=== PATIENT | female | born 1955 | race American Indian/Alaskan Native ===

== ENCOUNTER 2017-03-18 06:27 | Observation (INO) | payer MEDICARE, BC ==
[2017-03-16 11:19] VITALS: BMI 23.6
[2017-03-18] MEDS ORDERED: Lidocaine 2% Inj (20ml) ONE (06:51)
[2017-03-18] MEDS ORDERED: Iodixanol 320 MG/ML 200 ML BOTTLE IV ONE (06:52)
[2017-03-18] MEDS ORDERED: Iodixanol 320 MG/ML 100 ML BOTTLE IV ONE (06:52)
[2017-03-18] MEDS ORDERED: Iodixanol 320 mg/ml 150 ml Bottle IV ONE ×2 (06:52→15:40)
[2017-03-18 07:15] LABS: BASO # 0.03 K/mm3 (0.0-2.0); BASO % 0.4 % (0.0-3.0); EOS # 0.1 (0.0-0.7); EOS % 1.3 % (1.5-5.0); GRAN # 3.75 (1.4-6.5); HEMATOCRIT 30.7 % (36.0-48.0); LYMPH # 3.9 (1.2-3.4); LYMPH % 45.4 % (22.0-35.0); MEAN CELL VOLUME 86.7 fl (80.0-105.0); MEAN CORPUSCULAR HEMOGLOBIN 29.7 pg (25.0-35.0); MEAN CORPUSCULAR HGB CONC 34.2 g/dl (31.0-37.0); MEAN PLATELET VOLUME 9.4 fl (7.0-11.0); MONO # 0.8 (0.1-0.6); MONO % 8.9 % (1.0-6.0); RED CELL DISTRIBUTION WIDTH 14.9 % (11.5-14.5); WHITE BLOOD COUNT 8.5 10^3/ul (4.5-11.0)
[2017-03-18 07:25] LABS: INR 0.93 (0.93-1.08); PARTIAL THROMBOPLASTIN TIME 29.6 Seconds (25.1-36.5)
[2017-03-18 07:28] LABS: CALCIUM 10.1 mg/dL (8.4-10.5); POTASSIUM 3.4 mmol/L (3.6-5.0)
[2017-03-18] MEDS ORDERED: Propofol 10 mg/ml Inj (20 ML) ONE (07:41)
[2017-03-18] MEDS ORDERED: Midazolam 2 MG/2 ML VIAL ONE (07:42)
[2017-03-18] MEDS ORDERED: DiphenhydrAMINE 50 mg/ml Inj ONE (07:46)
[2017-03-18] MEDS ORDERED: Famotidine 20mg/50ml 20 MG/50 ML BAG IVPB ONE (07:46)
[2017-03-18] MEDS ORDERED: Sodium Chloride 0.9% 1,000 ML IV SCH ×2 (08:15→10:45)
[2017-03-18] MEDS: Insulin Lispro (humaLOG) MEDIUM Coverage SC SCH ×3 (11:30→22:16)
[2017-03-18] MEDS ORDERED: DiphenhydrAMINE 50 mg/ml Inj IVP ONE (11:41)
[2017-03-18] MEDS ORDERED: Influenza Vaccine 60 mcg/0.5 mL SYR (4YR UP) IM ONE (12:37)
[2017-03-18] MEDS ORDERED: Pneumococcal 23-Valent Vaccine IM ONE (12:37)
[2017-03-18] MEDS ORDERED: Heparin25000 units/250ml 1/2NS 25,000 UNITS/250 ML BAG IV SCH (12:45)
--- NOTE | 2017-03-18 13:58 | CP.PCM.HP ---
<Yaw Guardado - Last Filed: 03/18/17 13:38> History of Present Illness - History of Present Illness History of Present Illness: CC: LE pain when walking HPI: Pt is a 62 yo female with PMH of DM, HTN, HLD, b/l PAD s/p multiple stents presents s/p catherization for b/l LE PAD. According to the patient, she had increased difficulty walking 1-2 blocks due to B/l LE pain L>R since November 2016. Patient states that she has pain with walking before November, but it has become worse and more sharp now. Patient states that pain is mainly in her thighs. Patient states that OTC pain medications do not resolve her symptoms and that rest mildly helps. LE pain interferes with her sleep. Per Dr. Sultana, catherization showed occlusion in the b/l LE, however no intervention was taken at that time. Dr. Sultana requested that patient be admitted to undergo further testing as patient has history of multiple failed stents for PAD and to investigate further interventions including possible bypass. Pt denied CP, SOB, nausea, vomiting, diarrhea, constipation, abdominal pain, fever, chills, CELESTE, dysuria, or dizziness. PMD: Naricetti? PMH: DM, HTN, HLD, B/L PAD s/p stenting, anxiety/depression Surg: Pancreatic cyst removal, GI bleed with intervention?, ovarian cyst removal FHx: Colon CA All: Codeine, oxycodon, iodine SH: 10 cig/day tobacco use, denied EtOH or illicit drug use Medications: reviewed as per MAR Present on Admission - Present on Admission Any Indicators Present on Admission: No Review of Systems - Review of Systems Review of Systems: 12 point ROS reviewed and is negative other than what is stated in HPI. Past Patient History - Past Medical History & Family History Past Medical History?: Yes - Past Social History Smoking Status: Light Smoker < 10 Cigarettes Daily - CARDIAC Hx Cardiac Disorders: Yes (angioplasty x5) Hx Hypercholesterolemia: Yes Hx Hypertension: Yes Hx Peripheral Vascular Disease: Yes Other/Comment: b/l leg stents 5 total, most recent angiogram today 03/18/17 due to left leg pain especially at night - PULMONARY Hx Respiratory Disorders: No - NEUROLOGICAL Hx Neurological Disorder: No - HEENT Hx HEENT Problems: Yes (reading glasses) - RENAL Hx Chronic Kidney Disease: No - ENDOCRINE/METABOLIC Hx Diabetes Mellitus Type 2: Yes - HEMATOLOGICAL/ONCOLOGICAL Hx Anemia: Yes (blood transfusion 2015) - INTEGUMENTARY Hx Dermatological Problems: No Other/Comment: r groin dressing dry and intact from angiogram today 03/18/17 - MUSCULOSKELETAL/RHEUMATOLOGICAL Hx Falls: No - GASTROINTESTINAL Hx Gastrointestinal Disorders: Yes (gastritis,h pylori) Hx Diverticulitis: Yes Hx Pancreatitis: (pancreatic cyst) HX Swallowing Problems: Yes (When swallowing it hurt.) Hx Ulcer: Yes Other/Comment: icu x5 days 2016 due to gi bleed - GENITOURINARY/GYNECOLOGICAL Hx Genitourinary Disorders: Yes (ectopic ) Other/Comment: Yeast Infection - PSYCHIATRIC Hx Anxiety: Yes Hx Emotional Abuse: No Hx Physical Abuse: No - SURGICAL HISTORY Hx Surgeries: Yes Hx Orthopedic Surgery: Yes (left shoulder rotator cuff 2012) Other/Comment: d&c, exc pancreatic cyst, angiogram due to left leg pain . right fallopian tube and right ovary removed, b/l foot sx pt can't remember what werner of sx she had, r femoral artery occluded stent - ANESTHESIA Hx Anesthesia Reactions: No Hx Malignant Hyperthermia: No Meds Allergies/Adverse Reactions: Allergies Allergy/AdvReac Type Severity Reaction Status Date / Time codeine AdvReac Severe NAUSEA Verified 03/16/17 11:21 iodine AdvReac Severe NAUSEA Verified 03/16/17 11:21 oxycodone [From Percocet] AdvReac Severe NAUSEA Verified 03/16/17 11:21 Physical Exam - Constitutional Appears: No Acute Distress - Head Exam Head Exam: ATRAUMATIC, NORMAL INSPECTION, NORMOCEPHALIC - Eye Exam Eye Exam: EOMI, Normal appearance, PERRL - ENT Exam ENT Exam: Mucous Membranes Moist - Neck Exam Neck exam: Positive for: Full Rom. Negative for: Lymphadenopathy, Tenderness, Thyromegaly - Respiratory Exam Respiratory Exam: Clear to Auscultation Bilateral. absent: Rales, Rhonchi, Wheezes - Cardiovascular Exam Cardiovascular Exam: RRR, +S1, +S2. absent: Diastolic murmur, Gallop, Rubs, Systolic Murmur - GI/Abdominal Exam GI & Abdominal Exam: Soft. absent: Distended, Guarding, Rebound, Tenderness - Extremities Exam Additional comments: catherization site in right groin c/d/i without signs of hematoma - Back Exam Back exam: NORMAL INSPECTION - Neurological Exam Neurological exam: Alert, Oriented x3 - Psychiatric Exam Psychiatric exam: Normal Affect, Normal Mood - Skin Skin Exam: Dry, Intact, Normal Color, Warm Results - Vital Signs Recent Vital Signs: Last Vital Signs Temp 97.6 F 03/18/17 12:27 Pulse 80 03/18/17 12:27 Resp 16 03/18/17 12:27 BP 150/80 03/18/17 12:27 Pulse Ox 99 03/18/17 06:50 - Labs Result Diagrams: 03/18/17 07:00 03/18/17 07:00 Labs: Laboratory Results - last 24 hr 03/18/17 03/18/17 03/18/17 07:00 07:00 07:00 WBC 8.5 D RBC 3.54 Hgb 10.5 L Hct 30.7 L MCV 86.7 MCH 29.7 MCHC 34.2 RDW 14.9 H Plt Count 307 MPV 9.4 Gran % 44.0 L Lymph % (Auto) 45.4 H [place] % (Auto) 8.9 H Eos % (Auto) 1.3 L Baso % (Auto) 0.4 Gran # 3.75 Lymph # 3.9 H [place] # 0.8 H Eos # 0.1 Baso # 0.03 PT 10.2 INR 0.93 APTT 29.6 Sodium 142 Potassium 3.4 L Chloride 105 Carbon Dioxide 29 Anion Gap 12 BUN 25 H Creatinine 1.4 H Est GFR ( Amer) 46 Est GFR (Non-Af Amer) 38 Random Glucose 131 H Calcium 10.1 Triglycerides 81 Cholesterol 137 LDL Cholesterol Direct 58 HDL Cholesterol 45 Blood Type Antibody Screen BBK History Checked 03/18/17 07:00 WBC RBC Hgb Hct MCV MCH MCHC RDW Plt Count MPV Gran % Lymph % (Auto) [place] % (Auto) Eos % (Auto) Baso % (Auto) Gran # Lymph # [place] # Eos # Baso # PT INR APTT Sodium Potassium Chloride Carbon Dioxide Anion Gap BUN Creatinine Est GFR ( Amer) Est GFR (Non-Af Amer) Random Glucose Calcium Triglycerides Cholesterol LDL Cholesterol Direct HDL Cholesterol Blood Type O POSITIVE Antibody Screen Negative BBK History Checked Patient has bt Assessment & Plan - Assessment and Plan (Free Text) Assessment: 62 yo female with PMH of DM, HLD, HTN, PAD presents s/p catherization of b/l LE for PAD admitted for further evaluation and treatment for PAD. Plan: 1. PAD - Cardiology consulted S/p catherization - Vascular surgery consulted - CTA ileofemoral with b/l runoff ordered Benadryl, solumedrol, pepcid given prior to CTA due to h/o contrast dye allergy - F/u Echo, EKG, Lipid panel - Heparin bolus followed by drip, PTT q6h until therapeutic - Cont ASA, Lipitor, Cilostazol - Tylenol for pain - OOB as tolerated 2. FELIX - Nephro consulted - Baseline Cr ~1.4 - Pt underwent catherization and will need CTA - Hold diuretics, Metformin - NS 80 ml/hr 3. HTN - Cont home meds 4. HLD - Cont home meds 5. DM - Metformin held - ISS - Accuchecks ACHS 6. H/o Anxiety/Depression - Cont home meds GI/DVT PPx - Protonix - Heparin Pt seen and discussed in detail with Dr. Cook. Herminio Guardado, PGY1 <Rafael Cook - Last Filed: 03/18/17 14:34> Results - Vital Signs Recent Vital Signs: Last Vital Signs Temp 97.6 F 03/18/17 12:27 Pulse 80 03/18/17 12:27 Resp 16 03/18/17 12:27 BP 150/80 03/18/17 12:27 Pulse Ox 99 03/18/17 06:50 - Labs Result Diagrams: 03/18/17 07:00 03/18/17 07:00 Labs: Laboratory Results - last 24 hr 03/18/17 03/18/17 03/18/17 07:00 07:00 07:00 WBC 8.5 D RBC 3.54 Hgb 10.5 L Hct 30.7 L MCV 86.7 MCH 29.7 MCHC 34.2 RDW 14.9 H Plt Count 307 MPV 9.4 Gran % 44.0 L Lymph % (Auto) 45.4 H [place] % (Auto) 8.9 H Eos % (Auto) 1.3 L Baso % (Auto) 0.4 Gran # 3.75 Lymph # 3.9 H [place] # 0.8 H Eos # 0.1 Baso # 0.03 PT 10.2 INR 0.93 APTT 29.6 Sodium 142 Potassium 3.4 L Chloride 105 Carbon Dioxide 29 Anion Gap 12 BUN 25 H Creatinine 1.4 H Est GFR ( Amer) 46 Est GFR (Non-Af Amer) 38 Random Glucose 131 H Calcium 10.1 Triglycerides 81 Cholesterol 137 LDL Cholesterol Direct 58 HDL Cholesterol 45 Blood Type Antibody Screen BBK History Checked 03/18/17 07:00 WBC RBC Hgb Hct MCV MCH MCHC RDW Plt Count MPV Gran % Lymph % (Auto) [place] % (Auto) Eos % (Auto) Baso % (Auto) Gran # Lymph # Stevens # Eos # Baso # PT INR APTT Sodium Potassium Chloride Carbon Dioxide Anion Gap BUN Creatinine Est GFR ( Amer) Est GFR (Non-Af Amer) Random Glucose Calcium Triglycerides Cholesterol LDL Cholesterol Direct HDL Cholesterol Blood Type O POSITIVE Antibody Screen Negative BBK History Checked Patient has bt Attending/Attestation - Attestation I have personally seen and examined this patient.: Yes I have fully participated in the care of the patient.: Yes I have reviewed all pertinent clinical information: Yes Notes (Text): 03/18/17 14:24 Patient was seen and examined with medical doctor md. Agreed with resident assessment and plan. 62 yo female with PMH of DM, HTN, hyperlipidemia, PVD, s/p multiple stents , stage III CKD , was evaluated as out patient for left leg claudication , s/p angiography today by Dr.Micael Sultana for b/l LE PAD is admitted for further evaluation .We will hydrate patient, will hold diuretics and will do get Aortogram (CTA of Aorta with bilateral run off).We will also start patient on IV heparin drip and will also get Vascular surgery consult. We will monitor BUN and creatinin. Management plan was discussed in detail with patient Education was provided. 03/18/17 14:33
[2017-03-18] MEDS: Cilostazol 100 mg Tab UD PO SCH ×3 (14:00→22:17)
[2017-03-18] MEDS: Non Formulary Medication (Alprazolam [Alprazolam Xr] 0.5 MG) PO SCH ×2 (14:00→17:16)
[2017-03-18] MEDS: Sodium Chloride 0.9% 1,000 ML IV SCH (15:00)
[2017-03-18] MEDS: Heparin25000 units/250ml 1/2NS 25,000 UNITS/250 ML BAG IV SCH (15:59)
--- NOTE | 2017-03-18 16:59 | CP.PCM.CON ---
History of Present Illness - History of Present Illness History of Present Illness: PGY1 Vascular Surgery Consult Note for Dr. Hills Consult for PAD Patient is a 62 year old female with a past medical history of DM, HTN, HLD, b/ l PAD s/p multiple stents, pseudocyst of pancreas and diverticulitis presents s/ p catherization for b/l LE PAD. The patient states that she has been experiencing worsening left leg pain since November. The pain is located in her left thigh and does not radiate below her knee. The pain can be located on her anterior, posterior, medial or lateral aspect of her leg, it does not follow a specific pattern. The pain occurs every night when she is laying in her bed and does not allow her to sleep. The pain is also exacerbated by walking 1-2 blocks. Patient came to the hospital today for a catherization of left leg. Per Dr. Sultana, he was unable to pass the catheter through her vessel. Upon his request, the patient was admitted for further testing and evaluation of the left leg. Patient denies any headaches, blurred vision, double vision, chest pain, palpitations, nausea, vomiting, diarrhea, constipation, fevers, chills, numbness or tingling. PMH: DM, HTN, HLD, B/L PAD s/p stenting, anxiety/depression, pseudocyst of pancreas, diverticulitis Surg: Pancreatic cyst removal, GI bleed with intervention?, ovarian cyst removal FamilyHx: Mother - : "some kind of cancer" SocialHx: 10 cig/day tobacco use, denied EtOH or illicit drug use ALL: Codeine, oxycodon, iodine Review of Systems - Review of Systems All systems: reviewed and no additional remarkable complaints except (as per HPI ) Past Patient History - Past Medical History & Family History Past Medical History?: Yes - Past Social History Smoking Status: Light Smoker < 10 Cigarettes Daily - CARDIAC Hx Cardiac Disorders: Yes (angioplasty x5) Hx Hypercholesterolemia: Yes Hx Hypertension: Yes Hx Peripheral Vascular Disease: Yes Other/Comment: b/l leg stents 5 total, most recent angiogram today 03/18/17 due to left leg pain especially at night - PULMONARY Hx Respiratory Disorders: No - NEUROLOGICAL Hx Neurological Disorder: No - HEENT Hx HEENT Problems: Yes (reading glasses) - RENAL Hx Chronic Kidney Disease: No - ENDOCRINE/METABOLIC Hx Diabetes Mellitus Type 2: Yes - HEMATOLOGICAL/ONCOLOGICAL Hx Anemia: Yes (blood transfusion 2015) - INTEGUMENTARY Hx Dermatological Problems: No Other/Comment: r groin dressing dry and intact from angiogram today 03/18/17 - MUSCULOSKELETAL/RHEUMATOLOGICAL Hx Falls: No - GASTROINTESTINAL Hx Gastrointestinal Disorders: Yes (gastritis,h pylori) Hx Diverticulitis: Yes Hx Pancreatitis: (pancreatic cyst) HX Swallowing Problems: Yes (When swallowing it hurt.) Hx Ulcer: Yes Other/Comment: icu x5 days 2016 due to gi bleed - GENITOURINARY/GYNECOLOGICAL Hx Genitourinary Disorders: Yes (ectopic ) Other/Comment: Yeast Infection - PSYCHIATRIC Hx Anxiety: Yes Hx Emotional Abuse: No Hx Physical Abuse: No - SURGICAL HISTORY Hx Surgeries: Yes Hx Orthopedic Surgery: Yes (left shoulder rotator cuff 2012) Other/Comment: d&c, exc pancreatic cyst, angiogram due to left leg pain . right fallopian tube and right ovary removed, b/l foot sx pt can't remember what werner of sx she had, r femoral artery occluded stent - ANESTHESIA Hx Anesthesia Reactions: No Hx Malignant Hyperthermia: No Meds Allergies/Adverse Reactions: Allergies Allergy/AdvReac Type Severity Reaction Status Date / Time codeine AdvReac Severe NAUSEA Verified 03/16/17 11:21 iodine AdvReac Severe NAUSEA Verified 03/16/17 11:21 oxycodone [From Percocet] AdvReac Severe NAUSEA Verified 03/16/17 11:21 - Medications Medications: Current Medications Acetaminophen (Tylenol 325mg Tab) 650 mg PO Q6H PRN PRN Reason: Pain, Mild (1-3) Aspirin (Ecotrin) 325 mg PO DAILY [facility] Atorvastatin Calcium (Lipitor) 80 mg PO HS [facility] Carvedilol (Coreg) 3.125 mg PO BID [facility] Cilostazol (Pletal) 100 mg PO TID [facility] Last Admin: 03/18/17 14:00 Dose: Not Given Heparin Sodium/Sodium Chloride (Heparin 86452 Units/250ml 1/2 Normal Saline) 25 ,000 units in 250 mls @ 11.92 mls/hr IV .[id number] [facility]; 18 UNITS/KG/HR PRN Reason: Protocol Last Admin: 03/18/17 15:59 Dose: 18 units/kg/hr, 11.92 mls/hr Sodium Chloride (Sodium Chloride 0.9%) 1,000 mls @ 100 mls/hr IV .Q10H [facility] Last Admin: 03/18/17 15:00 Dose: 100 mls/hr Insulin Human Lispro (Humalog Med) 0 units SC ACHS [facility] PRN Reason: Protocol Last Admin: 03/18/17 11:30 Dose: Not Given Non-Formulary Medication (Alprazolam [Alprazolam Xr]) 0.5 mg PO TID [facility] Last Admin: 03/18/17 14:00 Dose: Not Given Pantoprazole Sodium (Protonix Inj) 40 mg IVP DAILY [facility] Valsartan (Diovan) 320 mg PO DAILY [facility] Venlafaxine HCl (Effexor Xr) 75 mg PO DAILY [facility] Physical Exam - Constitutional Appears: Non-toxic, No Acute Distress - Head Exam Head Exam: ATRAUMATIC, NORMOCEPHALIC - Eye Exam Eye Exam: EOMI, Normal appearance. absent: Scleral icterus - ENT Exam ENT Exam: Mucous Membranes Moist - Respiratory Exam Respiratory Exam: NORMAL BREATHING PATTERN. absent: Accessory Muscle Use, Respiratory Distress - Cardiovascular Exam Cardiovascular Exam: REGULAR RHYTHM - Extremities Exam Extremities exam: Positive for: normal capillary refill, pedal pulses present ( weaker on left than right). Negative for: calf tenderness, pedal edema Additional comments: strong femoral pulses b/l, palpable weak pulses on left PT/DP, 2+ PT/DP on right - Neurological Exam Neurological exam: Alert, Oriented x3 - Psychiatric Exam Psychiatric exam: Normal Affect, Normal Mood - Skin Skin Exam: Dry, Warm Results - Vital Signs Recent Vital Signs: Last Vital Signs Temp 97.6 F 03/18/17 12:27 Pulse 77 03/18/17 14:30 Resp 18 03/18/17 14:30 BP 141/77 03/18/17 14:30 Pulse Ox 99 03/18/17 06:50 - Labs Result Diagrams: 03/18/17 07:00 03/18/17 07:00 Labs: Laboratory Results - last 24 hr 03/18/17 03/18/17 03/18/17 07:00 07:00 07:00 WBC 8.5 D RBC 3.54 Hgb 10.5 L Hct 30.7 L MCV 86.7 MCH 29.7 MCHC 34.2 RDW 14.9 H Plt Count 307 MPV 9.4 Gran % 44.0 L Lymph % (Auto) 45.4 H [place] % (Auto) 8.9 H Eos % (Auto) 1.3 L Baso % (Auto) 0.4 Gran # 3.75 Lymph # 3.9 H [place] # 0.8 H Eos # 0.1 Baso # 0.03 PT 10.2 INR 0.93 APTT 29.6 Sodium 142 Potassium 3.4 L Chloride 105 Carbon Dioxide 29 Anion Gap 12 BUN 25 H Creatinine 1.4 H Est GFR ( Amer) 46 Est GFR (Non-Af Amer) 38 POC Glucose (mg/dL) Random Glucose 131 H Calcium 10.1 Triglycerides 81 Cholesterol 137 LDL Cholesterol Direct 58 HDL Cholesterol 45 Blood Type Antibody Screen BBK History Checked 03/18/17 03/18/17 07:00 16:28 WBC RBC Hgb Hct MCV MCH MCHC RDW Plt Count MPV Gran % Lymph % (Auto) [place] % (Auto) Eos % (Auto) Baso % (Auto) Gran # Lymph # [place] # Eos # Baso # PT INR APTT Sodium Potassium Chloride Carbon Dioxide Anion Gap BUN Creatinine Est GFR ( Amer) Est GFR (Non-Af Amer) POC Glucose (mg/dL) 267 H Random Glucose Calcium Triglycerides Cholesterol LDL Cholesterol Direct HDL Cholesterol Blood Type O POSITIVE Antibody Screen Negative BBK History Checked Patient has bt Assessment & Plan - Assessment and Plan (Free Text) Assessment: 62 year old female with known PAD admitted for further evaluation of left leg pain. Vascular Surgery consulted for PAD - eval for possible bypass PMH: DM, HTN, HLD, B/L PAD s/p stenting, anxiety/depression, pseudocyst of pancreas, diverticulitis Plan: Pain does not appear to be due to poor circulation at this time. Possible nerve pain from low back? Will follow up CT angio for better evaluation of vascular anatomy. Pending results of CT angio, will determine need for vascular surgery intervention Vascular Surgery will continue to follow Continue medical management per primary team Case discussed with Dr. Reinier Frazier PGY1
--- NOTE | 2017-03-18 19:16 | CARD ---
APPROVED REPORT EXAM: Two-dimensional and M-mode echocardiogram with Doppler and color Doppler. INDICATION CARDIAC CLEARANCE 2D DIMENSIONS IVSd1.2 (0.7-1.1cm)LVDd3.8 (3.9-5.9cm) PWd1.1 (0.7-1.1cm)LVDs2.5 (2.5-4.0cm) FS (%) 32.7 %LVEF (%)61.9 (>50%) M-Mode DIMENSIONS Aortic Root3.20 (2.2-3.7cm)Aortic Cusp Exc.1.70 (1.5-2.0cm) Aortic Valve AoV Peak Pzhouoor308.0cm/Pj Peak GR.6mmHg Mitral Valve MV E Qxzdoswg27.6cm/sMV A Wbqmrroc795.0cm/sE/A ratio0.7 TDI Lateral E' Peak V8.97cm/sMedial E' Peak V6.92cm/sE/Lateral E'8.9 E/Medial E'11.5 Pulmonary Valve PV Peak Hkcneujw38.2cm/sPV Peak Grad.2mmHg Tricuspid Valve TR Peak Wsvidfeg800pb/sRAP [id number] Peak Gr.21mmHg [id number] LEFT VENTRICLE The left ventricle is normal size. There is mild concentric left ventricular hypertrophy. The left ventricular function is normal. The left ventricular ejection fraction is within the normal range. There is normal LV segmental wall motion. Transmitral Doppler flow pattern is Grade I-abnormal relaxation pattern. RIGHT VENTRICLE The right ventricle is normal size. There is normal right ventricular wall thickness. The right ventricular systolic function is normal. ATRIA The left atrium size is normal. The right atrium size is normal. AORTIC VALVE The aortic valve is mildly to moderately thickened. No aortic regurgitation is present. There is no aortic valvular stenosis. MITRAL VALVE The mitral valve is mildly thickened. There is no mitral valve regurgitation noted. There is no mitral valve stenosis. TRICUSPID VALVE The tricuspid valve is normal in structure. PULMONIC VALVE The pulmonary valve is normal in structure. There is trace pulmonic valvular regurgitation. GREAT VESSELS The aortic root is normal in size. The IVC is normal in size and collapses >50% with inspiration. PERICARDIAL EFFUSION There is a trace loculated anterior pericardial effusion. <Conclusion> The left ventricle is normal size. There is mild concentric left ventricular hypertrophy. The left ventricular function is normal. The left ventricular ejection fraction is within the normal range. There is normal LV segmental wall motion. Transmitral Doppler flow pattern is Grade I-abnormal relaxation pattern.
--- NOTE | 2017-03-18 21:19 | CP.PCM.PN ---
Subjective - Date & Time of Evaluation Date of Evaluation: 03/18/17 Time of Evaluation: 11:00 - Subjective Subjective: Left leg claudication Patient is a 62 year old female with a past medical history of DM, HTN, HLD, b/ l PAD s/p multiple stents, pseudocyst of pancreas and diverticulitis presents s/ p catherization for b/l LE PAD. The patient states that she has been experiencing worsening left leg pain since November. The pain is located in her left thigh and does not radiate below her knee. The pain can be located on her anterior, posterior, medial or lateral aspect of her leg, it does not follow a specific pattern. The pain occurs every night when she is laying in her bed and does not allow her to sleep. The pain is also exacerbated by walking 1-2 blocks. Patient braught to the hospital today for Peripheral angiogram and possible left leg angioplasty. Procedure benefits and risks explained to the patient and informed consent obtained. Right common femoral artery accessed using micropuncture technique. 5F sheath introduced. Good arterial waveform and pressure noted. However The J wire had some resistance in the abdominal aorta. To avoid any trauma the procedure was aborted. Planned to admit the patient and obtain CT angio to understand the anatomy of Abdominal aorta and lower extremity arteries The patient was admitted for further testing and evaluation of the left leg. Patient denies any headaches, blurred vision, double vision, chest pain, palpitations, nausea, vomiting, diarrhea, constipation, fevers, chills, numbness or tingling. PMH: DM, HTN, HLD, B/L PAD s/p stenting, anxiety/depression, pseudocyst of pancreas, diverticulitis Surg: Pancreatic cyst removal, GI bleed with intervention?, ovarian cyst removal FamilyHx: Mother - : "some kind of cancer" SocialHx: 10 cig/day tobacco use, denied EtOH or illicit drug use ALL: Codeine, oxycodone, iodine Review of Systems - Review of Systems All systems: reviewed and no additional remarkable complaints except (as per HPI ) Past Patient History - Past Medical History & Family History Past Medical History?: Yes - Past Social History Smoking Status: Light Smoker < 10 Cigarettes Daily - CARDIAC Hx Cardiac Disorders: Yes (angioplasty x5) Hx Hypercholesterolemia: Yes Hx Hypertension: Yes Hx Peripheral Vascular Disease: Yes Other/Comment: b/l leg stents 5 total, most recent angiogram today 03/18/17 due to left leg pain especially at night - PULMONARY Hx Respiratory Disorders: No - NEUROLOGICAL Hx Neurological Disorder: No - HEENT Hx HEENT Problems: Yes (reading glasses) - RENAL Hx Chronic Kidney Disease: No - ENDOCRINE/METABOLIC Hx Diabetes Mellitus Type 2: Yes - HEMATOLOGICAL/ONCOLOGICAL Hx Anemia: Yes (blood transfusion 2015) - INTEGUMENTARY Hx Dermatological Problems: No Other/Comment: r groin dressing dry and intact from angiogram today 03/18/17 - MUSCULOSKELETAL/RHEUMATOLOGICAL Hx Falls: No - GASTROINTESTINAL Hx Gastrointestinal Disorders: Yes (gastritis,h pylori) Hx Diverticulitis: Yes Hx Pancreatitis: (pancreatic cyst) HX Swallowing Problems: Yes (When swallowing it hurt.) Hx Ulcer: Yes Other/Comment: icu x5 days 2016 due to gi bleed - GENITOURINARY/GYNECOLOGICAL Hx Genitourinary Disorders: Yes (ectopic ) Other/Comment: Yeast Infection - PSYCHIATRIC Hx Anxiety: Yes Hx Emotional Abuse: No Hx Physical Abuse: No - SURGICAL HISTORY Hx Surgeries: Yes Hx Orthopedic Surgery: Yes (left shoulder rotator cuff 2012) Other/Comment: d&c, exc pancreatic cyst, angiogram due to left leg pain . right fallopian tube and right ovary removed, b/l foot sx pt can't remember what werner of sx she had, r femoral artery occluded stent - ANESTHESIA Hx Anesthesia Reactions: No Hx Malignant Hyperthermia: No Meds Allergies/Adverse Reactions: Allergies Allergy/AdvReac Type Severity Reaction Status Date / Time codeine AdvReac Severe NAUSEA Verified 03/16/17 11:21 iodine AdvReac Severe NAUSEA Verified 03/16/17 11:21 oxycodone [From Percocet] AdvReac Severe NAUSEA Verified 03/16/17 11:21 - Medications Medications: Current Medications Acetaminophen (Tylenol 325mg Tab) 650 mg PO Q6H PRN PRN Reason: Pain, Mild (1-3) Aspirin (Ecotrin) 325 mg PO DAILY [facility] Atorvastatin Calcium (Lipitor) 80 mg PO HS [facility] Carvedilol (Coreg) 3.125 mg PO BID [facility] Cilostazol (Pletal) 100 mg PO TID [facility] Last Admin: 03/18/17 14:00 Dose: Not Given Heparin Sodium/Sodium Chloride (Heparin 13188 Units/250ml 1/2 Normal Saline) 25 ,000 units in 250 mls @ 11.92 mls/hr IV .[id number] JO[facility] RAMON; 18 UNITS/KG/HR PRN Reason: Protocol Last Admin: 03/18/17 15:59 Dose: 18 units/kg/hr, 11.92 mls/hr Sodium Chloride (Sodium Chloride 0.9%) 1,000 mls @ 100 mls/hr IV .Q10H [facility] Last Admin: 03/18/17 15:00 Dose: 100 mls/hr Insulin Human Lispro (Humalog Med) 0 units SC ACHS [facility] PRN Reason: Protocol Last Admin: 03/18/17 11:30 Dose: Not Given Non-Formulary Medication (Alprazolam [Alprazolam Xr]) 0.5 mg PO TID [facility] Last Admin: 03/18/17 14:00 Dose: Not Given Pantoprazole Sodium (Protonix Inj) 40 mg IVP DAILY [facility] Valsartan (Diovan) 320 mg PO DAILY [facility] Venlafaxine HCl (Effexor Xr) 75 mg PO DAILY [facility] Physical Exam - Constitutional Appears: Non-toxic, No Acute Distress - Head Exam Head Exam: ATRAUMATIC, NORMOCEPHALIC - Eye Exam Eye Exam: EOMI, Normal appearance. absent: Scleral icterus - ENT Exam ENT Exam: Mucous Membranes Moist - Respiratory Exam Respiratory Exam: NORMAL BREATHING PATTERN. absent: Accessory Muscle Use, Respiratory Distress - Cardiovascular Exam Cardiovascular Exam: REGULAR RHYTHM - Extremities Exam Extremities exam: Positive for: normal capillary refill, pedal pulses present ( weaker on left than right). Negative for: calf tenderness, pedal edema Additional comments: strong femoral pulses b/l, palpable weak pulses on left PT/DP, 2+ PT/DP on right - Neurological Exam Neurological exam: Alert, Oriented x3 - Psychiatric Exam Psychiatric exam: Normal Affect, Normal Mood - Skin Skin Exam: Dry, Warm Objective - Vital Signs/Intake and Output Vital Signs (last 24 hours): Temp Pulse Resp BP Pulse Ox 98.6 F 91 H 16 138/80 99 03/18/17 17:35 03/18/17 18:00 03/18/17 17:35 03/18/17 17:35 03/18/17 06:50 Intake and Output: 03/18/17 03/19/17 18:59 06:59 Intake Total 299 Output Total 0 Balance 299 - Medications Medications: Current Medications Acetaminophen (Tylenol 325mg Tab) 650 mg PO Q6H PRN PRN Reason: Pain, Mild (1-3) Aspirin (Ecotrin) 325 mg PO DAILY [facility] Atorvastatin Calcium (Lipitor) 80 mg PO HS [facility] Carvedilol (Coreg) 3.125 mg PO BID [facility] Last Admin: 03/18/17 17:16 Dose: 3.125 mg Cilostazol (Pletal) 100 mg PO TID [facility] Last Admin: 03/18/17 17:16 Dose: 100 mg Heparin Sodium/Sodium Chloride (Heparin 89418 Units/250ml 1/2 Normal Saline) 25 ,000 units in 250 mls @ 11.92 mls/hr IV .[id number] [facility]; 18 UNITS/KG/HR PRN Reason: Protocol Last Admin: 03/18/17 15:59 Dose: 18 units/kg/hr, 11.92 mls/hr Sodium Chloride (Sodium Chloride 0.9%) 1,000 mls @ 100 mls/hr IV .Q10H [facility] Last Admin: 03/18/17 15:00 Dose: 100 mls/hr Insulin Human Lispro (Humalog Med) 0 units SC ACHS [facility] PRN Reason: Protocol Last Admin: 03/18/17 17:16 Dose: 5 units Non-Formulary Medication (Alprazolam [Alprazolam Xr]) 0.5 mg PO TID [facility] Last Admin: 03/18/17 17:16 Dose: Not Given Pantoprazole Sodium (Protonix Inj) 40 mg IVP DAILY [facility] Valsartan (Diovan) 320 mg PO DAILY [facility] Venlafaxine HCl (Effexor Xr) 75 mg PO DAILY [facility] - Labs Labs: 03/18/17 07:00 03/18/17 07:00 PT 10.2 SECONDS (9.4-12.5) 03/18/17 07:00 INR 0.93 (0.93-1.08) 03/18/17 07:00 APTT 29.6 Seconds (25.1-36.5) 03/18/17 07:00 Assessment and Plan - Assessment and Plan (Free Text) Assessment: 1. PAD - Vascular surgery consulted - CTA ileofemoral with b/l runoff ordered Benadryl, solumedrol, pepcid given prior to CTA due to h/o contrast dye allergy - F/u Echo, EKG, Lipid panel - Heparin bolus followed by drip, PTT q6h until therapeutic - Cont ASA, Lipitor, Cilostazol - Tylenol for pain - OOB as tolerated Patient braught to the hospital today for Peripheral angiogram and possible left leg angioplasty. Procedure benefits and risks explained to the patient and informed consent obtained. Right common femoral artery accessed using micropuncture technique. 5F sheath introduced. Good arterial waveform and pressure noted. However The J wire had some resistance in the abdominal aorta. To avoid any trauma the procedure was aborted. Planned to admit the patient and obtain CT angio to understand the anatomy of Abdominal aorta and lower extremity arteries before further intervention 2. FELIX - Nephro consulted - Baseline Cr ~1.4 - Pt underwent catherization and will need CTA - Hold diuretics, Metformin - NS 80 ml/hr 3. HTN - Cont home meds 4. HLD - Cont home meds 5. DM - Metformin held - ISS - Accuchecks ACHS 6. H/o Anxiety/Depression - Cont home meds GI/DVT PPx - Protonix - Heparin
--- NOTE | 2017-03-18 22:59 | CARD ---
APPROVED REPORT EKG Measurement Heart [id number] <Conclusion> Sinus rhythm with 1st degree AV block Otherwise normal ECG
[2017-03-18 23:14] LABS: INR 1.1 (0.93-1.08)
--- NOTE | 2017-03-18 23:18 | CARD ---
APPROVED REPORT EKG Measurement Heart [id number] <Conclusion> Normal sinus rhythm Normal ECG
[2017-03-18 23:31] LABS: PARTIAL THROMBOPLASTIN TIME 120.4 Seconds (25.1-36.5)
--- NOTE | 2017-03-18 23:50 | CON ---
DATE: REASON FOR CONSULTATION: Peripheral vascular disease, pain in both legs, unsuccessful intervention. 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 She had a history of diabetes mellitus, hypertension, both well controlled according to the patient. She also smoked 10 cigarettes per day. In 2012, while undergoing a stress test for clearance for her left shoulder surgery, she was told that she has a blockage in her superficial femoral artery. She underwent angiogram, angioplasty and stenting. Since then, she has 4 to 5 more procedure of angioplasty and stenting of both SFA. Currently, she can walk one block without pain and after that she has left calf pain. However, her major complaint is bilateral thighs pain, left worse than the right and this occur at rest to the point that she cannot sleep. She denied any pain in the sciatic distribution. She denied any back pain. PAST MEDICAL HISTORY: Diabetes, hypertension, hyperlipidemia, peripheral vascular disease, anxiety and depression. PAST SURGICAL HISTORY: She has pancreatic cyst removal and a history of GI bleeding. FAMILY HISTORY: Positive for colon CA. SOCIAL HISTORY: She denied any alcohol or drug use. She smokes 10 cigarettes a day. PHYSICAL EXAMINATION GENERAL: Show a medium-sized black female, in no distress. HEENT: Within normal limits. CHEST: Clear. CARDIAC: Exam show regular rhythm. ABDOMEN: Soft. EXTREMITIES: Show equal in temperature. There are palpable femoral pulse on both sides, on the right side there is a palpable dorsalis pedis and PT pulse and on the left side, there is no pulse palpable distal to the femoral, but the feet are equal in temperature and there is good capillary refill. IMPRESSION: Peripheral vascular disease, possible superficial femoral artery occlusion; however, the patient has good femoral pulses bilaterally. It is unlikely that the etiology of the thigh pain is arterial in origin. This was explained to the patient and it was also explained to her a femoropopliteal bypass most likely would not relieve her thigh pain as she also has it on the right side where she has palpable pulse all the way to the foot. PLAN: We will await the result of the CT angiogram. She is not a surgical candidate at present due to her continuation of smoking, she is instructed to stop smoking and await the result of the CT angiogram. [place] MD [facility] # [id number]
[2017-03-19] MEDS: Sodium Chloride 0.9% 1,000 ML IV SCH ×2 (00:18→04:47)
--- NOTE | 2017-03-19 01:25 | CON ---
DATE: 03/18/2017 REFERRING PHYSICIAN: Dr. Royal and Dr. Sultana. REASON FOR CONSULTATION: CKD with need of IV contrast. CHIEF COMPLAINT AND HISTORY OF PRESENT ILLNESS: This is a 62-year-old female with a past medical history of hypertension, peripheral arterial disease with multiple stents in her legs, diabetes type 2. She has been having more difficulty in ambulating because of intermittent claudication. She is to get IV contrast to evaluate her arteries for possible intervention. She has a longstanding history of diabetes and hypertension and her review of records, she has a creatinine that is 1.4. In the past, she has had normal creatinine of 0.8, last creatinine was in 09/2014. I did speak to Dr. John Sultana, who is able to update me on the patient's underlying condition. I reviewed the notes. The patient has no complaints of headache or dizziness. No nausea. No vomiting. No dysuria or frequency. She has been using [id number] NSAID's for pain, but had not improved her symptoms. REVIEW OF SYSTEMS: All the review of symptoms within normal limits except as I mentioned. PAST MEDICAL HISTORY: As above. SOCIAL HISTORY: She smokes about 10 cigarettes a day. She denies alcohol or drug use. MEDICATIONS: Reviewed on the [facility]. FAMILY HISTORY: No history of kidney disease. She has colon cancer in her family. PAST SURGICAL HISTORY: She had a pancreatic cyst that was removed. She had ovarian cyst that was removed. ALLERGIES: CODEINE, OXYCODONE AND IODINE. PHYSICAL EXAMINATION: VITAL SIGNS: Temperature is 98.2, pulse of 81, blood pressure 124/65 and respirations 18. Height is 5 feet 6 inch, weight is 146 pounds. BMI is 23. GENERAL: The patient lying in bed, uncomfortable, and in no acute distress. HEENT: Atraumatic and normocephalic. Anicteric sclerae. Moist mucosa. Fay conjunctivae. No oral lesions. NECK: No JVD, anterior and posterior adenopathy, thyromegaly, or bruits. CARDIOVASCULAR: S1 and S2 regular. No murmur, rubs, or gallop. LUNGS: Clear to auscultation bilaterally. No wheezes, rales, or rhonchi. ABDOMEN: Bowel sounds are positive. Soft, nontender and nondistended. No hepatosplenomegaly. No rebound and no guarding EXTREMITIES: No cyanosis, clubbing, or edema. NEUROLOGIC: No facial asymmetry. Tongue is midline. No uvula deviation. Power is 5/5 upper extremity and lower extremity. Sensation intact in upper extremity and lower extremity. PSYCHIATRIC: She is awake, alert and oriented x3. No anxiety or depression. She has normal affect. GENITOURINARY: No CVA tenderness. VASCULAR: 2+ pulses in the carotid pulses and pedal pulses. SKIN: No erythema or nodules. SPINE: Shows normal curvature. EXTREMITIES: No Cyanosis and clubbing, no edema. LABORATORY DATA: Potassium is 3.4 with a creatinine of 1.4, LDL 58. Hemoglobin is 10.5. Echo done shows LV that is normal size, there is mild concentric LVH. ASSESSMENT: 1. Chronic kidney disease, stage III. 2. Diabetes type 2. 3. Peripheral arterial disease. 4. Dyslipidemia. 5. Hypertension. PLAN: The patient is currently comfortable. She is going to be brought in for hydration. She was started on normal saline after her catheterization today. The patient is currently on carvedilol and losartan for blood pressure. She is on anticoagulation with heparin. The patient is on Lipitor for dyslipidemia. She is going to continue with Pletal for her peripheral arterial disease. I will continue her on normal saline, 12 hours before and 12 hours after the IV contrast. The patient is going to get repeat blood work done tomorrow. She does have risk of contrast nephropathy, but given the fact that she needs further intervention for her peripheral arterial disease and the fact that she does understand that this can worsen her kidney function, she is hoping to have any further intervention with cardiac cath. Ricardo Isaac MD
[2017-03-19 06:39] VITALS: O2SAT 98
[2017-03-19 07:04] LABS: HEMATOCRIT 29.8 % (36.0-48.0); MEAN CELL VOLUME 85.9 fl (80.0-105.0); MEAN CORPUSCULAR HEMOGLOBIN 29.4 pg (25.0-35.0); MEAN CORPUSCULAR HGB CONC 34.2 g/dl (31.0-37.0); MEAN PLATELET VOLUME 9.8 fl (7.0-11.0); RED CELL DISTRIBUTION WIDTH 14.6 % (11.5-14.5); WHITE BLOOD COUNT 14.9 10^3/ul (4.5-11.0)
[2017-03-19 07:17] LABS: INR 1.1 (0.93-1.08); PARTIAL THROMBOPLASTIN TIME 90.8 Seconds (25.1-36.5)
[2017-03-19 07:20] LABS: ALB/GLOB RATIO 1.3 (1.1-1.8); BILIRUBIN,TOTAL 0.5 mg/dL (0.2-1.3); CALCIUM 9.3 mg/dL (8.4-10.5); PHOSPHOROUS 3.1 mg/dL (2.5-4.5); POTASSIUM 3.4 mmol/L (3.6-5.0); TOTAL PROTEIN 6.7 g/dL (5.8-8.3)
[2017-03-19] MEDS: Insulin Lispro (humaLOG) MEDIUM Coverage SC SCH ×2 (08:15→12:33)
[2017-03-19] MEDS ORDERED: Potassium Chloride 20 mEq ER Tab PO STA (08:23)
[2017-03-19] MEDS ORDERED: Sodium Chloride 0.9% 1,000 ML IV SCH (08:39)
[2017-03-19] MEDS: Cilostazol 100 mg Tab UD PO SCH ×2 (09:09→13:49)
[2017-03-19] MEDS: Non Formulary Medication (Alprazolam [Alprazolam Xr] 0.5 MG) PO SCH (09:41)
[2017-03-19] MEDS ORDERED: Venlafaxine 75 mg ER Cap PO SCH (10:00)
[2017-03-19] MEDS ORDERED: hydroCHLOROthiazide-Triamterene 25 mg-37.5 mg Cap UD PO SCH (10:00)
[2017-03-19] MEDS ORDERED: Aspirin 325 mg EC Tablets PO SCH (10:00)
[2017-03-19] MEDS ORDERED: Potassium Chloride 20 mEq ER Tab PO ONE (11:00)
[2017-03-19 12:23] VITALS: BP 165/87; PULSE 70; RESP 21; TEMP 98.3
[2017-03-19] MEDS: Heparin25000 units/250ml 1/2NS 25,000 UNITS/250 ML BAG IV SCH (12:33)
--- NOTE | 2017-03-19 18:44 | CP.PCM.DIS ---
<AidechiomaYaw - Last Filed: 03/19/17 18:58> Provider - Provider Date of Admission: 03/18/17 10:36 Attending physician: Rafael Cook MD Primary care physician: oRny Ferro MD Consults: Nephrology: Dr. Ricardo Isaac Vascular surgery: Dr. Mahogany Hills Cardiology: Dr. John Sultana Time Spent in preparation of Discharge (in minutes): 25 Hospital Course - Lab Results Lab Results: Most Recent Lab Values WBC 14.9 10^3/ul (4.5-11.0) H D 03/19/17 06:20 RBC 3.47 10^6/uL (3.5-6.1) L 03/19/17 06:20 Hgb 10.2 g/dL (12.0-16.0) L 03/19/17 06:20 Hct 29.8 % (36.0-48.0) L 03/19/17 06:20 MCV 85.9 fl (80.0-105.0) 03/19/17 06:20 MCH 29.4 pg (25.0-35.0) 03/19/17 06:20 MCHC 34.2 g/dl (31.0-37.0) 03/19/17 06:20 RDW 14.6 % (11.5-14.5) H 03/19/17 06:20 Plt Count 308 10^3/uL (120.0-450.0) 03/19/17 06:20 MPV 9.8 fl (7.0-11.0) 03/19/17 06:20 Gran % 44.0 % (50.0-68.0) L 03/18/17 07:00 Lymph % (Auto) 45.4 % (22.0-35.0) H 03/18/17 07:00 Stafford % (Auto) 8.9 % (1.0-6.0) H 03/18/17 07:00 Eos % (Auto) 1.3 % (1.5-5.0) L 03/18/17 07:00 Baso % (Auto) 0.4 % (0.0-3.0) 03/18/17 07:00 Gran # 3.75 (1.4-6.5) 03/18/17 07:00 Lymph # 3.9 (1.2-3.4) H 03/18/17 07:00 Stafford # 0.8 (0.1-0.6) H 03/18/17 07:00 Eos # 0.1 (0.0-0.7) 03/18/17 07:00 Baso # 0.03 K/mm3 (0.0-2.0) 03/18/17 07:00 PT 12.1 SECONDS (9.4-12.5) 03/19/17 06:20 INR 1.10 (0.93-1.08) H 03/19/17 06:20 APTT 48.8 Seconds (25.1-36.5) H 03/19/17 13:21 Sodium 141 mmol/L (132-148) 03/19/17 06:20 Potassium 3.4 mmol/L (3.6-5.0) L 03/19/17 06:20 Chloride 109 mmol/L (98-107) H 03/19/17 06:20 Carbon Dioxide 27 mmol/L (21-33) 03/19/17 06:20 Anion Gap 9 (10-20) L 03/19/17 06:20 BUN 20 mg/dL (7-21) 03/19/17 06:20 Creatinine 1.3 mg/dl (0.7-1.2) H 03/19/17 06:20 Est GFR ( Amer) 50 03/19/17 06:20 Est GFR (Non-Af Amer) 42 03/19/17 06:20 POC Glucose (mg/dL) 199 mg/dL (65-110) H 03/19/17 11:18 Random Glucose 225 mg/dL (70-110) H 03/19/17 06:20 Calcium 9.3 mg/dL (8.4-10.5) 03/19/17 06:20 Phosphorus 3.1 mg/dL (2.5-4.5) 03/19/17 06:20 Magnesium 2.0 mg/dL (1.7-2.2) 03/19/17 06:20 Total Bilirubin 0.5 mg/dL (0.2-1.3) 03/19/17 06:20 AST 35 U/L (14-36) 03/19/17 06:20 ALT 34 U/L (7-56) 03/19/17 06:20 Alkaline Phosphatase 84 U/L (38-126) 03/19/17 06:20 Total Protein 6.7 g/dL (5.8-8.3) 03/19/17 06:20 Albumin 3.8 g/dL (3.0-4.8) 03/19/17 06:20 Globulin 2.9 gm/dL 03/19/17 06:20 Albumin/Globulin Ratio 1.3 (1.1-1.8) 03/19/17 06:20 Triglycerides 41 mg/dL (35-160) 03/19/17 06:20 Cholesterol 141 mg/dL (130-200) 03/19/17 06:20 LDL Cholesterol Direct 66 mg/dL (0-129) 03/19/17 06:20 HDL Cholesterol 53 mg/dL (29-60) 03/19/17 06:20 Blood Type O POSITIVE 03/18/17 07:00 Antibody Screen Negative 03/18/17 07:00 BBK History Checked Patient has bt 03/18/17 07:00 - Hospital Course Hospital Course: Pt is a 62 yo female with PMH of DM, HTN, HLD, b/l PAD s/p multiple stents was admitted s/p catherization for b/l LE PAD. Patient was taken for catherization which showed occlusion in the b/l LE, however no intervention was taken at that time. Dr. Sultana requested at that time the patient be admitted to undergo further testing as patient has history of multiple failed stents for PAD and to investigate further interventions including possible bypass. Echocardiogram was preformed showing EF of 61%, mild concentric LVH, normal LV function and normal LV segmental wall motion. Vascular surgery with Dr. Hills was consulted and recommended no plan for any acute vascular surgical intervention. Nephrology with Dr. Cabrera was consulted and recommended hydration and repeat blood work to help rule out contrast induced nephropathy. Patient renal function stabilized after initial catherization. Abdominal angiography was preformed showing left femoral artery stent occlusion with appropriate collateral, patent right stent, and abdominal aorta showing moderate calcification with initial thickening. Patient was monitored for 24 hours after her procedure and evaluated to be hemodynamically stable and appropriate for outpatient follow up with Dr. Sultana and Dr. Penn for proposed vascular intervention. Patient was instructed to keep strict follow up with all members of her medical team, educated on smoking cessation and discharge instructions. Patient was in understanding and agreeable with discussion. - Date & Time of H&P Date of H&P: 03/18/17 Time of H&P: 13:38 Discharge Exam - Head Exam Head Exam: ATRAUMATIC, NORMOCEPHALIC - Eye Exam Eye Exam: EOMI, PERRL Pupil Exam: PERRL - ENT Exam ENT Exam: Mucous Membranes Moist - Neck Exam Neck exam: Full Rom - Respiratory Exam Respiratory Exam: Clear to PA & Lateral. absent: Rales, Rhonchi, Wheezes - Cardiovascular Exam Cardiovascular Exam: REGULAR RHYTHM, +S1, +S2. absent: Diastolic murmur, Systolic Murmur - GI/Abdominal Exam GI & Abdominal Exam: Normal Bowel Sounds, Soft. absent: Guarding, Mass, Tenderness - Extremities Exam Extremities exam: pedal pulses present - Back Exam Back exam: NORMAL INSPECTION. absent: CVA tenderness (L), CVA tenderness (R) - Neurological Exam Neurological exam: Alert, CN II-XII Intact, Normal Gait, Oriented x3 - Psychiatric Exam Psychiatric exam: Normal Affect, Normal Mood - Skin Skin Exam: Dry, Intact, Normal Color Discharge Plan - Follow Up Plan Condition: GOOD Disposition: HOME/ ROUTINE Instructions: How to Stop Smoking (DC), Peripheral Vascular Disease (DC), Angiogram (DC) Additional Instructions: 1. Follow up with your primary medical doctor after discharge from the hospital 2. Follow up outpatient with vascular surgery after discharge 3. Take medications as prescribed to you 4. Return to the hospital or nearest ED if your symptoms worsen or return 5. Smoking cessation education Referrals: Rony Ferro MD [Primary Care Provider] - <Rafael Cook - Last Filed: 03/20/17 10:30> Provider - Provider Date of Admission: 03/18/17 10:36 Attending physician: Rafael Cook MD Primary care physician: Rony Ferro MD Hospital Course - Lab Results Lab Results: Most Recent Lab Values WBC 14.9 10^3/ul (4.5-11.0) H D 03/19/17 06:20 RBC 3.47 10^6/uL (3.5-6.1) L 03/19/17 06:20 Hgb 10.2 g/dL (12.0-16.0) L 03/19/17 06:20 Hct 29.8 % (36.0-48.0) L 03/19/17 06:20 MCV 85.9 fl (80.0-105.0) 03/19/17 06:20 MCH 29.4 pg (25.0-35.0) 03/19/17 06:20 MCHC 34.2 g/dl (31.0-37.0) 03/19/17 06:20 RDW 14.6 % (11.5-14.5) H 03/19/17 06:20 Plt Count 308 10^3/uL (120.0-450.0) 03/19/17 06:20 MPV 9.8 fl (7.0-11.0) 03/19/17 06:20 Gran % 44.0 % (50.0-68.0) L 03/18/17 07:00 Lymph % (Auto) 45.4 % (22.0-35.0) H 03/18/17 07:00 Stafford % (Auto) 8.9 % (1.0-6.0) H 03/18/17 07:00 Eos % (Auto) 1.3 % (1.5-5.0) L 03/18/17 07:00 Baso % (Auto) 0.4 % (0.0-3.0) 03/18/17 07:00 Gran # 3.75 (1.4-6.5) 03/18/17 07:00 Lymph # 3.9 (1.2-3.4) H 03/18/17 07:00 Stafford # 0.8 (0.1-0.6) H 03/18/17 07:00 Eos # 0.1 (0.0-0.7) 03/18/17 07:00 Baso # 0.03 K/mm3 (0.0-2.0) 03/18/17 07:00 PT 12.1 SECONDS (9.4-12.5) 03/19/17 06:20 INR 1.10 (0.93-1.08) H 03/19/17 06:20 APTT 48.8 Seconds (25.1-36.5) H 03/19/17 13:21 Sodium 141 mmol/L (132-148) 03/19/17 06:20 Potassium 3.4 mmol/L (3.6-5.0) L 03/19/17 06:20 Chloride 109 mmol/L (98-107) H 03/19/17 06:20 Carbon Dioxide 27 mmol/L (21-33) 03/19/17 06:20 Anion Gap 9 (10-20) L 03/19/17 06:20 BUN 20 mg/dL (7-21) 03/19/17 06:20 Creatinine 1.3 mg/dl (0.7-1.2) H 03/19/17 06:20 Est GFR ( Amer) 50 03/19/17 06:20 Est GFR (Non-Af Amer) 42 03/19/17 06:20 POC Glucose (mg/dL) 199 mg/dL (65-110) H 03/19/17 11:18 Random Glucose 225 mg/dL (70-110) H 03/19/17 06:20 Calcium 9.3 mg/dL (8.4-10.5) 03/19/17 06:20 Phosphorus 3.1 mg/dL (2.5-4.5) 03/19/17 06:20 Magnesium 2.0 mg/dL (1.7-2.2) 03/19/17 06:20 Total Bilirubin 0.5 mg/dL (0.2-1.3) 03/19/17 06:20 AST 35 U/L (14-36) 03/19/17 06:20 ALT 34 U/L (7-56) 03/19/17 06:20 Alkaline Phosphatase 84 U/L (38-126) 03/19/17 06:20 Total Protein 6.7 g/dL (5.8-8.3) 03/19/17 06:20 Albumin 3.8 g/dL (3.0-4.8) 03/19/17 06:20 Globulin 2.9 gm/dL 03/19/17 06:20 Albumin/Globulin Ratio 1.3 (1.1-1.8) 03/19/17 06:20 Triglycerides 41 mg/dL (35-160) 03/19/17 06:20 Cholesterol 141 mg/dL (130-200) 03/19/17 06:20 LDL Cholesterol Direct 66 mg/dL (0-129) 03/19/17 06:20 HDL Cholesterol 53 mg/dL (29-60) 03/19/17 06:20 Blood Type O POSITIVE 03/18/17 07:00 Antibody Screen Negative 03/18/17 07:00 BBK History Checked Patient has bt 03/18/17 07:00 Attending/Attestation - Attestation I have personally seen and examined this patient.: Yes I have fully participated in the care of the patient.: Yes I have reviewed all pertinent clinical information, including history, physical exam and plan: Yes Notes (Text): 03/20/17 10:23 Patient was seen and examined with phlebotomist medical lab assistant. Agreed with resident assessment and plan. Patient remain stable overnight.There is no overnight issue.Renal functions remain stable.Patient CTA showed Left leg SFA stent occlusion but has decent collaterals, Abdominal Aorta: Chronic dissection with calcification Vs. Ulcer Vs. Thickening .Patient was evaluated by Vascular surgery and Dr.Micael Sultana.At this plan is for out patient follow up and possible vascular intervention as out patient.Angelito will be discharged home and will follow up with her PCP and vascular surgery. Management plan was discussed in detail with patient Education was provided.
--- NOTE | 2017-03-19 19:23 | PN ---
DATE: 03/19/2017 SUBJECTIVE: The patient has no complaints of any chest pain or shortness of breath. No headache. PHYSICAL EXAMINATION: VITAL SIGNS: Temperature is 98.3, pulse is 70 and blood pressure is 144/74. GENERAL: The patient is lying in bed, flat, comfortable. HEENT: No oral lesion. Anicteric sclerae. Moist mucosa. NECK: No JVD, adenopathy, or thyromegaly. CARDIOVASCULAR: S1 and S2, regular. No murmurs, rubs, or gallops. LUNGS: Clear to auscultation bilaterally. No wheeze, rales, or rhonchi. ABDOMEN: Bowel sounds are positive, soft, nontender and nondistended. EXTREMITIES: No cyanosis, clubbing or edema. LABORATORY DATA: Potassium is . ASSESSMENT: 1. Chronic kidney disease, stage III. 2. Diabetes type 2. 3. Peripheral arterial disease. 4. Dyslipidemia. 5. Hypertension. PLAN: At this time, the patient is currently comfortable. She is losartan for her chronic kidney disease. She has a creatinine of 1.3 this morning. She had potassium that was low, which was replaced. I did give her my card for outpatient followup. She most likely has underlying diabetic kidney disease. She had contrast , but her creatinine is stable. She should get a repeat blood work as an outpatient. Ricardo Isaac MD
--- NOTE | 2017-03-19 23:07 | CP.PCM.PN ---
Subjective - Date & Time of Evaluation Date of Evaluation: 03/19/17 Time of Evaluation: 13:30 - Subjective Subjective: Patient seen and evaluated Ambulating and comfortable Denies abdominal pain or leg pain Objective - Vital Signs/Intake and Output Vital Signs (last 24 hours): Temp Pulse Resp BP Pulse Ox 98.3 F 70 21 165/87 H 98 03/19/17 12:00 03/19/17 12:00 03/19/17 12:00 03/19/17 12:00 03/19/17 06:00 Intake and Output: 03/19/17 03/20/17 18:59 06:59 Intake Total 150 Balance 150 - Labs Labs: 03/19/17 06:20 03/19/17 06:20 PT 12.1 SECONDS (9.4-12.5) 03/19/17 06:20 INR 1.10 (0.93-1.08) H 03/19/17 06:20 APTT 48.8 Seconds (25.1-36.5) H 03/19/17 13:21 - Constitutional Appears: Well - Head Exam Head Exam: ATRAUMATIC, NORMAL INSPECTION, NORMOCEPHALIC - Eye Exam Eye Exam: EOMI, Normal appearance, PERRL Pupil Exam: NORMAL ACCOMODATION, PERRL - ENT Exam ENT Exam: Mucous Membranes Moist, Normal Exam - Neck Exam Neck Exam: Full ROM, Normal Inspection - Respiratory Exam Respiratory Exam: Clear to Ausculation Bilateral, NORMAL BREATHING PATTERN - Cardiovascular Exam Cardiovascular Exam: REGULAR RHYTHM, +S1, +S2 - GI/Abdominal Exam GI & Abdominal Exam: Soft, Normal Bowel Sounds - Extremities Exam Extremities Exam: Full ROM, Normal Capillary Refill, Normal Inspection Additional comments: Right DP ++ Left leg DP+ - Neurological Exam Neurological Exam: Alert, Awake, CN II-XII Intact, Normal Gait, Oriented x3 - Psychiatric Exam Psychiatric exam: Normal Affect, Normal Mood - Skin Skin Exam: Dry, Warm Assessment and Plan - Assessment and Plan (Free Text) Assessment: 1. PAD CTA: Left leg SFA stent occlusion but has decent collaterals Abdominal Aorta: Chronic dissection with calcification Vs. Ulcer Vs. Thickening Official report pending As per Dr. Hills no acute intervention needed at this time Patient for discharge today Advised to follow up with Dr. Wesley (Patient's original Vascular surgeon) D/W Dr. Wesley and the patient. patient will call and set up appointment with him Continue home meds
== END 2017-03-19 14:54 | disposition home or self-care (01) ==
LOC: SDSVAS 06:27 → 2RSO 10:36
PROVIDERS: ADMIT Internal Medicine; ATTEND Internal Medicine
DX: T82.858A Stenosis of other vascular prosthetic devices, implants and grafts, initial encounter (principal); Y83.1 Surgical operation with implant of artificial internal device as the cause of abnormal reaction of the patient, or of later complication, without mention of misadventure at the time of the procedure; E11.51 Type 2 diabetes mellitus with diabetic peripheral angiopathy without gangrene; N18.3 Chronic kidney disease, stage 3 (moderate); E11.22 Type 2 diabetes mellitus with diabetic chronic kidney disease; B37.9 Candidiasis, unspecified; Z80.0 Family history of malignant neoplasm of digestive organs; E78.00 Pure hypercholesterolemia, unspecified; E78.5 Hyperlipidemia, unspecified; F17.210 Nicotine dependence, cigarettes, uncomplicated; I12.9 Hypertensive chronic kidney disease with stage 1 through stage 4 chronic kidney disease, or unspecified chronic kidney disease; K57.92 Diverticulitis of intestine, part unspecified, without perforation or abscess without bleeding; K86.3 Pseudocyst of pancreas; Z87.19 Personal history of other diseases of the digestive system; N17.9 Acute kidney failure, unspecified; Z91.041 Radiographic dye allergy status; D64.9 Anemia, unspecified; Z88.5 Allergy status to narcotic agent; Z88.8 Allergy status to other drugs, medicaments and biological substances; F41.9 Anxiety disorder, unspecified; F32.89 Other specified depressive episodes
CPT/HCPCS: 36415; 75635; 80048; 80053; 80061; 82948; 83735; 84100; 85025; 85027; 85610; 85730; 86850; 86900; 93005; 93306; C1769; C1887; C1894; C9113; G0378; J1200; J1644; J2001; J2250; J2704; J2930; J7030; J7040; Q9967

== ENCOUNTER 2017-09-16 15:47 | Emergency (ER) | payer MEDICARE, BC ==
[2017-09-16 15:47] VITALS: BMI 23.6
[2017-09-16 16:31] VITALS: RESP 18; TEMP 99.6; O2SAT 99
--- NOTE | 2017-09-16 17:16 | ED PDOC ---
Arrival/HPI - General Chief Complaint: Trauma Time Seen by Provider: 09/16/17 17:15 Historian: Patient - History of Present Illness Narrative History of Present Illness (Text): 09/16/17 17:15 Patient is a 62 year old female with a past medical history of DM, HTN, HLD, b/ l PAD s/p multiple stents, pseudocyst of pancreas and diverticulitis presents c/ o left medial knee pain, and left hip pain since last night. Patient stated she developed an abdominal pain last night. She said she got up, but then she tripped and fell down on the ground hitting left knee on the floor. Patient has been ambulating with mild left knee pain. Denies head injury, neck pain, sob, syncope, cp, abdominal pain, urinary symptoms, dizziness, or abnormal gait. Time/Duration: Other (last night) Quality: Aching Context: Home Past Medical History - Provider Review Nursing Documentation Reviewed: Yes - Infectious Disease Hx of Infectious Diseases: None - Reproductive Menopause: Yes - Cardiac Hx Cardiac Disorders: Yes (angioplasty x5) Hx Hypertension: Yes Hx Pacemaker: No Hx Peripheral Vascular Disease: Yes Other/Comment: b/l leg stents 5 total, most recent angiogram today 03/18/17 due to left leg pain especially at night - Pulmonary Hx Respiratory Disorders: No - Neurological Hx Neurological Disorder: No Hx Paralysis: No - HEENT Hx HEENT Disorder: No - Renal Hx Renal Disorder: No - Endocrine/Metabolic Hx Endocrine Disorders: Yes - Hematological/Oncological Hx Blood Transfusions: Yes (2016-DUE TO GI BLEED"IN MY SMALL INTESTINE") - Integumentary Hx Dermatological Disorder: No Other/Comment: r groin dressing dry and intact from angiogram today 03/18/17 - Musculoskeletal/Rheumatological Hx Musculoskeletal Disorders: Yes Hx Falls: No Hx Herniated Disk: Yes Hx Unsteady Gait: Yes (difficulty walking left leg ivonne at night) Other/Comment: left carpal tunnel no sx - Gastrointestinal Hx Gastrointestinal Disorders: Yes (h pylori) Hx Pancreatitis: Yes (pancreatic cyst) - Genitourinary/Gynecological Hx Genitourinary Disorders: Yes (ectopic ) Other/Comment: Yeast Infection - Psychiatric Hx Psychophysiologic Disorder: Yes Hx Anxiety: Yes Hx Emotional Abuse: No Hx Physical Abuse: No Hx Substance Use: No - Surgical History Other/Comment: HX:ANGIOGRAM 03/18/17 " DUE TO SEVERE LEFT LEG PAIN". HX: BILATERAL LEG STENTS X5. HX:"HAMMER TOES,BUNIONS AND FRACTURES TO FEET REPAIRED ". HX: PANCREATIC "2 PSEUDO CYSTS REMOVED.". HX: RIGHT FALLOPIAN TUBE AND RIGHT OVARY REMOVED - Anesthesia Hx Anesthesia: Yes Hx Anesthesia Reactions: No Hx Malignant Hyperthermia: No - Suicidal Assessment Feels Threatened In Home Enviroment: No Family/Social History - Physician Review Nursing Documentation Reviewed: Yes Family/Social History: Other (noncontributory) Smoking Status: Former Smoker Hx Alcohol Use: No Hx Substance Use: No Allergies/Home Meds Allergies/Adverse Reactions: Allergies codeine Adverse Reaction (Severe, Verified 03/16/17 11:21) NAUSEA iodine Adverse Reaction (Severe, Verified 03/16/17 11:21) NAUSEA oxycodone [From Percocet] Adverse Reaction (Severe, Verified 03/16/17 11:21) NAUSEA Home Medications: Home Meds Medication Instructions Recorded Confirmed Rosuvastatin Calcium [Crestor] 20 mg PO HS 08/09/14 04/06/17 Alprazolam [Alprazolam Xr] 0.5 mg PO TID 03/16/17 04/06/17 Aspirin [Aspirin EC] 325 mg PO DAILY 03/16/17 04/06/17 Carvedilol [Coreg] 3.125 mg PO BID 03/16/17 04/06/17 Cilostazol [Pletal] 100 mg PO TID 03/16/17 04/06/17 MetFORMIN ER [Glucophage XR] 500 mg PO BID 03/16/17 04/06/17 Triamterene/Hydrochlorothiazid 1 tab PO DAILY 03/16/17 04/06/17 [Triamterene-Hctz 37.5-25 mg Tb] Valsartan [Diovan] 320 mg PO DAILY 03/16/17 04/06/17 Venlafaxine [Effexor XR] 75 mg PO DAILY 03/16/17 04/06/17 Review of Systems - Review of Systems Constitutional: Normal. absent: Fatigue, Weight Change, Fevers Eyes: Normal ENT: Normal Respiratory: Normal. absent: SOB, Cough Cardiovascular: Normal Gastrointestinal: Normal Genitourinary Female: Normal Musculoskeletal: Other (see hpi) Skin: Normal Neurological: Normal Endocrine: Normal Hemo/Lymphatic: Normal Psychiatric: Normal Physical Exam Vital Signs Temp Pulse Resp BP Pulse Ox 09/16/17 16:15 99.6 F 86 18 106/65 99 Temperature: Afebrile Blood Pressure: Normal Pulse: Regular Respiratory Rate: Normal Appearance: Positive for: Well-Appearing, Non-Toxic, Comfortable Pain Distress: None Mental Status: Positive for: Alert and Oriented X 3 - Systems Exam Head: Present: Atraumatic, Normocephalic Pupils: Present: PERRL Extroacular Muscles: Present: EOMI Conjunctiva: Present: Normal Mouth: Present: Moist Mucous Membranes Neck: Present: Normal Range of Motion, Trachea Midline. No: Meningeal Signs, MIDLINE TENDERNESS, Paraspinal Tenderness Respiratory/Chest: Present: Clear to Auscultation, Good Air Exchange. No: Respiratory Distress, Accessory Muscle Use, Wheezes, Tender to Palpation Cardiovascular: Present: Regular Rate and Rhythm, Normal S1, S2. No: Murmurs Abdomen: No: Tenderness, Distention, Peritoneal Signs, Rebound, Guarding Back: Present: Normal Inspection. No: CVA Tenderness, Midline Tenderness Upper Extremity: Present: Normal Inspection, Normal ROM, NORMAL PULSES, Neurovascularly Intact, Capillary Refill < 2s. No: Cyanosis, Edema Lower Extremity: Present: Normal Inspection, NORMAL PULSES, Tenderness (Mild tenderness left medial knee joint area. No swelling or ecchymosis. Mild left hip tenderness with abduction.), Neurovascularly Intact, Capillary Refill < 2 s. No: Edema, CALF TENDERNESS, Cyanosis, Shar's Sign, Swelling, Erythema, Deformity, Temperature Abnormalties Neurological: Present: GCS=15, CN II-XII Intact, Speech Normal, Motor Func Grossly Intact, Normal Sensory Function, Normal Cerebellar Funct, Gait Normal, Memory Normal Skin: Present: Warm, Dry, Normal Color. No: Rashes Psychiatric: Present: Alert, Oriented x 3, Normal Insight, Normal Concentration Medical Decision Making ED Course and Treatment: 09/16/17 18:29 Re-evaluation. Patient feels better. Discussed results and plan with patient who expresses understanding. All questions answered and there is agreement with the plan to discharge home with instructions. Patient stable for discharge. Return if symptoms persist or worsen. I recommended to f/u pmd in 1-2 days. To return to ED if left thigh becomes painful, swelling or ecchymosis and/or affecting lower leg. Review lab result with your doctor. Re-evaluation Time: 18:29 Reassessment Condition: Re-examined, Improved - RAD Interpretation Narrative RAD Interpretations (Text): 09/16/17 18:29 Hip x-rays: No fx nor dislocation Knee x-rays: No Fx Radiology Orders: 09/16/17 17:22 Hip Left [HIP MIN 2V W/ PELVIS LT] [RAD] Stat KNEE WITH PATELLA LEFT 3 VIEW [RAD] Stat - Medication Orders Current Medication Orders: Discontinued Medications Acetaminophen (Tylenol 325mg Tab) 650 mg PO STAT STA Stop: 09/16/17 17:21 Disposition/Present on Arrival - Present on Arrival Any Indicators Present on Arrival: No History of DVT/PE: No History of Uncontrolled Diabetes: No Urinary Catheter: No History of Decub. Ulcer: No History Surgical Site Infection Following: None - Disposition Have Diagnosis and Disposition been Completed?: Yes Diagnosis: Knee pain, acute Disposition: HOME/ ROUTINE Disposition Time: 18:31 Patient Plan: Discharge Patient Problems: Current Active Problems Problem Status Onset Knee pain, acute Acute Condition: IMPROVED Discharge Instructions (ExitCare): Knee Pain (DC) Additional Instructions: Call private doctor for follow up visit in 1-2 days. Take medication for pain as needed. Call orthopedist if pain worsen or persist. Return to emergency if left thigh, or lower leg becomes swelling, bruise, or worsening of pain. Review with your doctor lab results from last visit. Prescriptions: Acetaminophen [Tylenol 325mg tab] 650 mg PO Q4H PRN #30 tab PRN Reason: Pain, Severe (8-10) Referrals: Ori Garcia DO [Staff Provider] - Follow up with primary Forms: [employer] ([place])
--- NOTE | 2017-09-16 18:12 | RAD ---
PROCEDURE: Left Hip X-ray Radiographs. HISTORY: Posttraumatic pain COMPARISON: None. FINDINGS: BONES: Normal. No fracture. JOINTS: Mild degenerative changes which are symmetrical. SOFT TISSUES: Normal. OTHER FINDINGS: Bilateral arterial stents incompletely visualized. IMPRESSION: No acute findings related to/accounting for the clinical presentation. Concordant results with the preliminary interpretation rendered by the emergency department physician procedure.
--- NOTE | 2017-09-16 18:13 | RAD ---
PROCEDURE: Left Knee Radiographs. HISTORY: Posttraumatic pain COMPARISON: None. FINDINGS: BONES: No acute fractures. Quadriceps and patellar insertion calcifications identified. JOINTS: Normal. No osteoarthritis. JOINT EFFUSION: None. OTHER FINDINGS: SFA arterial stent. IMPRESSION: No acute findings related to/accounting for the clinical presentation. Additional benign and/or incidental findings described above. Concordant results with the preliminary interpretation rendered by the emergency department physician procedure.
[2017-09-16 18:38] VITALS: BP 142/78; PULSE 80
== END 2017-09-16 18:38 | disposition home or self-care (01) ==
LOC: ED 15:47
DX: M25.562 Pain in left knee (principal)